=== PATIENT | male | born 1960 | race African-American/Black ===

== ENCOUNTER 2016-08-25 08:59 | Emergency (ER) | payer BC ==
[~2016-08-25 08:59] MED LIST: ASAB PO; ASABAYER PO; BENICAR40 PO; BUM1 PO; BUM2 PO; COREG PO; COREG12 PO; COREG25 PO; DEX4 PO; FORTAMET1000 MG PO; GLUCOPHAGE1000 MG PO; GLUCOTRO10 PO; JANUVIA100 MG PO; L20 PO; LANTUS SC; LEXAPRO10 PO; LOM PO; MAXIMUM D3 PO; MICARDIS40 PO; MICARDIS80 PO; MOBIC15 MG PO; MULTIPLE VIT PO; NORV10 PO; NOVOLOG SC; PROTONIX PO; REVLIMID PO; VELCADE IV; ZAROX2.5B PO; ZOCOR40 PO; ZOVIRAX400 MG PO; ZYRTEC ALLGY10 MG PO
[2016-08-25 10:13] LABS: BASOPHILS 0.5 %; BASOPHILS ABSOLUTE 0.02 10/3/uL (0.0-0.16); EOSINOPHILS 3.5 %; EOSINOPHILS ABSOLUTE 0.13 10/3/uL (0.0-0.53); ER CBC TAT 0 Hrs 03 Mins; HEMATOCRIT 27.9 % (40.0-51.0); LYMPHOCYTES 24.7 %; LYMPHOCYTES ABSOLUTE 0.91 10/3/uL (0.67-4.30); MEAN CORPUS HGB CONC 35.8 g/dL (32.0-36.0); MEAN CORPUSCULAR HEMOGLOB 32.4 pg (26.0-34.0); MEAN CORPUSCULAR VOLUME 90.3 fL (80-100); MONOCYTES 9.5 %; MONOCYTES ABSOLUTE 0.35 10/3/uL (0.21-1.20); NEUTROPHILS 61.8 %; NEUTROPHILS ABSOLUTE 2.27 10/3/uL (2.02-8.40); PLATELET COUNT 152 10/3/uL (150-400); RBC DISTRIBUTION WIDTH 12.2 % (12.0-16.0); RED CELL COUNT 3.09 10/6/uL (4.7-6.1); WHITE BLOOD CELLS 3.7 10/3/uL (4.5-10.5)
[2016-08-25 10:15] LABS: MANUAL DIFF NO %
[2016-08-25 10:31] LABS: A/G RATIO 1.1 (0.7-1.9); ALKALINE PHOSPHATASE 72 U/L (45-117); BUN (BLOOD UREA NITROGEN) 24 MG/DL (6-23); CALCIUM, SERUM 8.6 MG/DL (8.5-10.4); CHLORIDE, SERUM 110 MMOL/L (96-112); CO2 (CARBON DIOXIDE) 24 MMOL/L (24-34); CREATININE 2.14 MG/DL (0.70-1.30); GFR AFRICAN AMERICAN 39 ML/MIN (>=60); GFR NON AFRICAN AMERICAN 34 ML/MIN (>=60); GLOBULIN 2.8 G/DL (2.5-4.1); GLUCOSE, SERUM 138 MG/DL (60-99); POTASSIUM, SERUM 4.1 MMOL/L (3.5-5.3); SGOT(AST) 51 U/L (5-40); SGPT(ALT) 68 U/L (5-65); SODIUM, SERUM 141 MMOL/L (135-148); TOTAL BILIRUBIN 0.2 MG/DL (0-1.2); TOTAL PROTEIN 5.8 G/DL (6.0-8.5)
== END 2016-08-25 12:45 | disposition home or self-care (01) ==
LOC: ER 08:59
PROVIDERS: Emergency Medicine
DX: I12.9 Hypertensive chronic kidney disease with stage 1 through stage 4 chronic kidney disease, or unspecified chronic kidney disease (principal); N18.9 Chronic kidney disease, unspecified; K21.9 Gastro-esophageal reflux disease without esophagitis; E11.22 Type 2 diabetes mellitus with diabetic chronic kidney disease; Z79.899 Other long term (current) drug therapy; Z79.82 Long term (current) use of aspirin; Z79.4 Long term (current) use of insulin
CPT/HCPCS: 80053; 85025; 99283; A9270-GY